=== PATIENT | male | born 1980 | race Caucasian/White ===

== ENCOUNTER 2024-07-05 10:23 | Day surgery (SDC) | payer OTHER, SELFPAY ==
[2024-06-29 14:55] VITALS: BMI 33.6
--- OUTSIDE RECORDS SUMMARY | 2024-07-04 12:37 | XMS_ITS | Patient Health Record ---
[facility] Organization [facility] Address [address] [place] [address] Care Team Providers Care Mail Reader Name Role Phone Jacob LANTIGUA, Gavin Primary Care Provider Gem Salazar Mohini Unavailable [phone] Reason For Referral No Information Medications Medication SIG (Take, Route, Fr equency, Duration) Notes Start Date End Date Status Chlorthalidone 25 MG 1 tablet in the mor kayla with food Orally Once a day Active Valsartan 320 MG 1 tablet Orally Once a day Active Physical Therapy 3-4x per week for 3-4 weeks Active Social History Tobacco Use: Social History Observation Description Date Details (start date - stop date) Former Smoker NA - NA Tobacco Use/Smoking Question Answer Notes Are you a: former smoker When did you start smoking? 1996 When did you stop smoking? 2009 How long has it been since you last smoked? 1-3 months Additional Findings: Tobacco Non-User Current no n-smoker Alcohol Screen Question Answer Notes Did you have a drink containing alcohol in the p ast year? Yes Points 0 Interpretation Negative Tobacco use other than smoking: Question Answer Notes Are you an other tobacco user? No Problems No Known Problems Plan Of Treatment Pending Test Test Name Order Date [id number] TENDON SHEATH/LIGAMENT 0 09/15/2017 Insurance Providers Payer Name Payer Address Payer Phone Subscriber Number Group Number Insured Name Patient Relationship to Insured Coverage Start Date Coverage End Date [facility] [address] [place] [address] [id number] PattersonCraig govea Self - patient is the insured Medical (General) History Medical History History ICD Code High blood pressure Chicken pox Surgical History Surgery Date(Month/Year) hernia 2007
--- OUTSIDE RECORDS SUMMARY | 2024-07-04 12:37 | XMS_ITS | Continuity of Care Document ---
Author Organization [place] - [facility], [facility] Address [address] [place] [address] Care Team Providers Care Automation And Control Engineer Name Role Phone DEMOND EASON Primary Care Provider Assessment Encounter Date Assessment Date Assessment LastModified by Organization Details LastModified Time 06/02/2024 06/02/2024 Patient presents with bilateral non-pulsatile tinnitus. We reviewed that unfortunately there is no known medical nor surgical cure. I have recommended the use of hearing protection as needed and avoidance of loud music. They should also use masking techniques with background noises that modulate to decrease perception of non-pulsatile tinnitus. Other therapies to improve tolerance of tinnitus were reviewed, to include biofeedback, sound retraining, and cognitive behavioral therapy. We discussed that high stress, low sleep and high caffeine intake can also be contributing factors. A brochure was provided to patient to read at home. Audiometric testing also notable for a 10 dB asymmetry from 500 to 2000 Hz with the left being the better hearing ear. Does not meet criteria for retrocochlear investigation, particularly given the bilateral nature of the tinnitus. I have recommended annual audiometric testing. Patient to call sooner with perceived change. [email or web address] Not available 06/02/2024 16:18:51 Plan of Treatment Reminders Order Date Submit Date Provider Last Modified By Organization Details Last Modified Time Details Appointments None record ed. Lab None record ed. Referral None record ed. Procedures None record ed. Surgeries None record ed. Imaging None record ed. Medication Orders None record ed. Patient TargetsNo targets recorded. Patient InstructionsNo instructions recorded. Reason for Referral None Reported. Results Created Date Observation Date Name Description Value Unit Range Abnormal Flag Note LastModifiedBy Organization Detail LastModifiedTime 06/02/20 24 audio gram No observ ation record ed. BARCODE Not Available 2023 16:30:24 Result Notes None recorded. Problems Name Problem SNOMED Code Status Onset Date Resolution Date Notes Provider Name and Address Organization Details Recorded Time Sensorineur al hearing loss of bilateral ears 431069508 Active 2023 Marilee larson [place] - [facility] 4 14:37:53 Bilateral tinnitus 7088762917466 Active 2023 AARON CASTAÑEDA PA-C [address] [place] [address] [place], [phone] - [facility] [place] 4 16:18:55 Problem Notes None recorded. Procedures Surgical History Date Name Laterality Status Provider Name and Address Organization Details Recorded Time 06/02/2024 Comp Audio with Tymps (20661 & 48255) completed Marilee Diez MA - [facility] 06/02/2024 14:37:39 Imaging Results None recorded. Procedure Notes None recorded. Medical Equipment None Reported. Medications Name Sig Start Date Stop Date Status Note LastModified by Organization Details LastModified Time prednisone 20 mg tablet TAKE 2 TABLETS BY MOUTH DAILY X2 DAYS THEN 1 TABLET X3 DAYS FOR 5 DAYS active Not Available Not Available No t Available chlorthalido ne 25 mg tablet TAKE 1 TABLET IN THE MORNING WITH FOOD ORALLY DAILY 90 DAYS active Not Available Not Available No t Available triamcinolon e acetonide 0.1 % topical cream 1 APPLICATION EXTERNALLY TWO TIMES A DAY X14 DAYS THEN NEEDED active Not Available Not Available No t Available amlodipine 10 mg tablet TAKE 1 TABLET BY MOUTH EVERY DAY active Not Available Not Available No t Available valsartan 320 mg tablet TAKE 1 TABLET BY MOUTH EVERY DAY FOR 90 DAYS active Not Available Not Available No t Available hydrochlorot hiazide 25 mg tablet TAKE 1 TABLET BY MOUTH EVERY DAY IN THE MORNING active Not Available Not Available No t Available Klor-Con M20 mEq tablet,exten ded release TAKE 1 TABLET BY MOUTH EVERY DAY WITH FOOD FOR 90 DAYS active Not Available Not Available No t Available GaviLyte-G 236 gram-22.74 gram-6.74 gram-5.86 gram oral solution TAKE 8 OUNCE BY MOUTH DIRECTED FOLLOW INSTRUCTION S PROVIDED BY OFFICE active Not Available Not Available No t Available Wegovy 1.7 mg/0.75 mL subcutaneous pen injector INJECT 1 SYRINGE SUBCUTANEOU SLY ONCE A WEEK active Not Available Not Available No t Available Wegovy 1 mg/0.5 mL subcutaneous pen injector INJECT 0.5 ML SUBCUTANEOU SLY ONE TIME PER WEEK active Not Available Not Available No t Available Wegovy 0.25 mg/0.5 mL subcutaneous pen injector INJECT 0.5 ML SUBCUTANEOU SLY WEEKLY active Not Available Not Available N ot Available Wegovy 0.5 mg/0.5 mL subcutaneous pen injector INJECT 0.5 ML SUBCUTANEOU SLY WEEKLY active Not Available Not Available N ot Available Vitals Date Recorded Body height Body mass index (BMI) Body weight Provider Name and Address Organization Details Last Updated DateTime 06/02/2024 180.34 cm 34.2 kg/m2 717333.13 g Monica Odell MA - [facility] 06/02/2024 14:43:00 Social History None recorded. Functional Status None recorded. Mental Status None recorded. Family History Nothing Reported. Medical History No medical history recorded. Past Encounters Encounter ID Performer Location Encounter Start Date Encounter Closed Date Diagnosis/Indication Diagnosis SNOMED-CT Code Diagnosis ICD10 Code Diagnosis Note [id number] AARON CASTAÑEDA PA-C [facility] [address] [address] 06/02/2024 13:57:01 06/02/2024 15:03:51 Sensorineural hearing loss of bilateral ears 544640132 H90.3 Audiologic al evaluation results:Ri ght ear:{{Norm al Normal through 2 kHz Mild M oderate Mo derately-s evere Rachell re Profoun d Normal through 3 kHz#}} {{hearing hearing. s loping to a mild slopi ng to a moderate s loping to moderately severe* sl oping to severe slo ping to profound f lat high frequency low frequency mid frequency cookie bite simon curve}} {{with sen sorineural hearing loss with* cond uctive hearing loss with mixed hearing loss with}} {{excellen t* good fa ir poor no measurable }} word recognitio n.Left ear:{{Norm al Normal through 2 kHz Mild M oderate Mo derately-s evere Rachell re Profoun d Normal through 3 kHz#}} {{hearing hearing. s loping to a mild slopi ng to a moderate s loping to moderately severe* sl oping to severe slo ping to profound f lat high frequency low frequency mid frequency cookie bite simon curve}} {{with sen sorineural hearing loss with* cond uctive hearing loss with mixed hearing loss with}} {{excellen t* good fa ir poor no measurable }} word recognitio n.Asymmetr ic SNHL from 500-2kHz of 10dB, worst in the right. Tympanomet ry:Right Ear:{{Type A* Type As Type Ad Type C Type C, shallow & rounded Ty pe B Type B with large volume Cou ld not maintain a hermetic seal}}Left Ear:{{Type A* Type As Type Ad Type C Type C, shallow & rounded Ty pe B Type B with large volume Cou ld not maintain a hermetic seal}} Bilateral tinnitus 75486 70345 102 H93.13 Health Concerns Section Related Observation LastModified by Organization Detai ls LastModified Time None Recorded Concern Status LastModified by Organization Details LastModified Time None Recorded Payers Encounter Date Sequence Insurance Name Policy Number Policy Gonzalez Covered Member ID Gonzalez Member ID Guarantor Name 06/02/2024 1 [facility] Craig Patterson [id number] Craig Patterson Notes Date Note Type Note Provider Name and Address Organization Details Recorded Time 06/02/2024 text/html 43 year old male presents for evaluation of the ears. Referred by PCP for nonpulsatile tinnitus which he reports has been ongoing for several years in the right > left ear. It is mostly well tolerated though worse at night. States hearing seems to be okay. He uses over the ear headphones and does listen to loud music, states he turned off the high volume notification to override the warnings. He has no other history of excessive noise exposure, no otalgia nor otorrhea, and no history of recurrent otitis and no ear surgeries. AARON CASTAÑEDA PA-C [address] [place] [address], [phone], [facility] - [facility] 06/02/2024 16:19:08
--- OUTSIDE RECORDS SUMMARY | 2024-07-04 12:37 | XMS_ITS | Data Portability ---
Author Organization [place] - [facility], [facility] Address [address] [place] [address] Care Team Providers Care Draughtsman Name Role Phone DEMOND EASON Primary Care [...] Sensorineur al hearing loss of bilateral ears 674239003 Active 2023 Marilee larson MA - [facility] 4 14:37:53 Bilateral tinnitus 4583994583508 Active 2023 AARON CASTAÑEDA PA-C [address] [place] [address] [place], [phone] - [facility] 16:18:55 Problem Notes None recorded. Procedures Surgical History Date Name Laterality Status Provider Name and Address Organization Details Recorded Time 06/02/2024 Comp Audio with Tymps (10915 & 15340) completed Marilee Diez MA [facility] 06/02/2024 14:37:39 Imaging Results Imaging Date Name Status LastModified by Organiz ation Details LastModified Time 06/02/2024 audiogram completed BARCODE Information no t available 06/02/2024 16:30:24 Procedure Notes None recorded. Medical Equipment None [...] Updated DateTime 06/02/2024 180.34 cm 34.2 kg/m2 172048.13 g Monica Odell MA - [facility] 06/02/2024 14:43:00 Social History None recorded. Functional Status None recorded. Mental Status None recorded. Family History Nothing Reported. Medical History No medical history recorded. Past Encounters Encounter ID Performer Location Encounter Start Date Encounter Closed Date Diagnosis/Indication Diagnosis SNOMED-CT Code Diagnosis ICD10 Code Diagnosis Note [id number] AARON CASTAÑEDA PA-C [facility] [address] [address] 06/02/2024 13:57:01 06/02/2024 15:03:51 Sensorineural hearing loss of bilateral ears 132411050 H90.3 Audiologic al evaluation results:Ri ght ear:{{Norm [...] not maintain a hermetic seal}} Bilateral tinnitus 47097 97753 102 H93.13 Health Concerns Section Related Observation LastModified by Organization Detai ls LastModified Time None Recorded Concern Status LastModified by Organization Details LastModified Time None Recorded Advance Directives Directive None Recorded Payers Encounter Date Sequence Insurance Name Policy Number Policy Gonzalez Covered Member ID Gonzalez Member ID Guarantor Name 06/02/2024 1 [facility] Craig Patterson [id number] Craig Patterson Notes Date Note Type Note [...] and no ear surgeries. AARON CASTAÑEDA PA-C [address] [place] [address], [phone], [facility] - [facility] 06/02/2024 16:19:08
[2024-07-05] VITALS (8 sets, daily range): BP systolic 122–144; BP diastolic 84–95; PULSE 51–75; RESP 14–18; TEMP 36.3–36.8; O2SAT 94–100; BMI 33.6
--- OUTSIDE RECORDS SUMMARY | 2024-07-05 10:47 | XMS_ITS | Patient Health Record ---
Author [facility] Address [address] [place] [address] Care Team Providers Care Dishwasher Preparer Name Role Phone Jacob LANTIGUA, Gavin Primary Care Provider Gem Salazar Mohini Unavailable [phone] Reason For Referral No Information Medications Medication [...] Treatment Pending Test Test Name Order Date [id number] TENDON SHEATH/LIGAMENT 0 09/15/2017 Insurance Providers Payer Name Payer Address Payer Phone Subscriber Number Group Number Insured Name Patient Relationship to Insured Coverage Start Date Coverage End Date formerly [facility] [address] [place] [address] [id number] PattersonCraig govea Self - patient is the insured Medical (General) History Medical History History ICD Code High blood pressure Chicken pox Surgical History Surgery Date(Month/Year) hernia 2007
[2024-07-05] MEDS: Lactated Ringers 1,000 ML 100 ML IVCONT (11:33)
--- NOTE | 2024-07-05 14:08 | HO.ANESPROP2 ---
Documented by User: Sarita Wallace NP 07/04/24 13:33 HPI - Anesthesia Eval Consult details Narrative: 43yo M for Bilateral Medial Rectus Eye Muscle Recession Anesthesia Pre-Procedure Meds Is the patient on any of the following meds?: GLP1/DPP4 PMFSH Past Medical History Medical History HTN (hypertension) Surgical History Surgical History Hx of hernia repair Hx of arthroscopic knee surgery Hx of non-cataract eye surgery Social History Social History Are you a primary child care attendant school to a significant other at home: No Do you presently have visiting nurse or other home services: No Patient Tobacco Use Status: Former Tobacco user Tobacco use type: Cigarette Years Smoked: 15 Use of substances other than those prescribed or required for medical reasons: No Have you been hit, kicked, punched, or otherwise hurt by someone within the past year? If so, by whom?: No Spiritual Healthcare Practices: none Zoroastrianism Healthcare Practices: Jainism Cultural Healthcare Practices: none Are you DNR?: No Advance Directives Information Provided: Yes Advance Directives on File: No Recently lost weight without trying: No Eating poorly because of decreased appetite: No Nutrition Risks: No Nutritional Risk Poor oral hygiene: No Meds Allergies Allergy/AdvReac Type Severity Reaction Status Date / Time No Known Allergies Allergy Verified 07/05/24 11:12 Home Medications ?Medication ?Instructions ?Recorded ?Confirmed ?Last Taken ?Type amlodipine 10 mg tablet 10 mg PO DAILY 06/29/24 06/29/24 07/05/24 07:00 History chlorthalidone 25 mg tablet 25 mg PO DAILY 06/29/24 06/29/24 Unknown History potassium chloride 10 mEq 10 meq PO DAILY 06/29/24 06/29/24 Unknown History tablet,extended release semaglutide (weight loss) 1.7 1.7 mg subcut QWEEK 06/29/24 06/29/24 06/22/24 History mg/0.75 mL subcutaneous pen injector (Wegovy) valsartan 320 mg tablet 320 mg PO DAILY 06/29/24 06/29/24 Unknown History Exam Height,Weight and Vital Signs: Height 5 ft 11 in Weight 109.316 kg Assessment and Plan Assessment Anesthesia Assessment: Chart Reviewed Documented by User: Alyssa Mccollum DO 07/05/24 14:08 HPI - Anesthesia Eval Anesthesia Pre-Procedure Meds Is the patient on any of the following meds?: GLP1/DPP4 PMFSH Past Medical History Medical History HTN (hypertension) Family History Family history of problems with anesthesia: No Surgical History Surgical History Hx of hernia repair Hx of arthroscopic knee surgery Hx of non-cataract eye surgery History of Problems with Anesthesia: No Social History Social History Are you a primary child care attendant school to a significant other at home: No Do you presently have visiting nurse or other home services: No Patient Tobacco Use Status: Former Tobacco user Tobacco use type: Cigarette Years Smoked: 15 Use of substances other than those prescribed or required for medical reasons: No Have you been hit, kicked, punched, or otherwise hurt by someone within the past year? If so, by whom?: No Spiritual Healthcare Practices: none Zoroastrianism Healthcare Practices: Jainism Cultural Healthcare Practices: none Are you DNR?: No Advance Directives Information Provided: Yes Advance Directives on File: No Recently lost weight without trying: No Eating poorly because of decreased appetite: No Nutrition Risks: No Nutritional Risk Poor oral hygiene: No Meds Allergies Allergy/AdvReac Type Severity Reaction Status Date / Time No Known Allergies Allergy Verified 07/05/24 11:12 Home Medications ?Medication ?Instructions ?Recorded ?Confirmed ?Last Taken ?Type amlodipine 10 mg tablet 10 mg PO DAILY 06/29/24 06/29/24 07/05/24 07:00 History chlorthalidone 25 mg tablet 25 mg PO DAILY 06/29/24 06/29/24 Unknown History potassium chloride 10 mEq 10 meq PO DAILY 06/29/24 06/29/24 Unknown History tablet,extended release semaglutide (weight loss) 1.7 1.7 mg subcut QWEEK 0106/29/24 06/22/24 History mg/0.75 mL subcutaneous pen injector (Snow) valsartan 320 mg tablet 320 mg PO DAILY 06/29/24 06/29/24 Unknown History Exam Exam Date and Time: 07/05/24 1408 Height,Weight and Vital Signs: Height 5 ft 11 in Weight 109.316 kg Vital Signs Temperature 97.3 F 07/05/24 11:31 Pulse Rate 72 07/05/24 11:31 Respiratory Rate 15 07/05/24 11:31 Blood Pressure 122/84 07/05/24 11:31 Pulse Oximetry 100 07/05/24 11:31 Oxygen Delivery Method Room Air 07/05/24 11:31 Temperature 97.3 F 07/05/24 11:31 Pulse Rate 72 07/05/24 11:31 Respiratory Rate 15 07/05/24 11:31 Blood Pressure 122/84 07/05/24 11:31 Pulse Oximetry 100 07/05/24 11:31 Oxygen Delivery Method Room Air 07/05/24 11:31 Airway Mallampati Class: III TM Dist: <=3cm Neck ROM: Full Loose/Missing/Broken Teeth: No (patient denies any loose or broken teeth) Heart: S1S2 Lungs: CTAB Assessment and Plan Assessment Anesthesia Assessment: Anesthesia Plan Discussed and Chart Reviewed Final Anesthetic Review Family History of Problems with Anesthesia: No History of Problems with Anesthesia: No NPO: Yes ASA Class: II Final Preanesthetic Review: No Changes in Pt Med Stat, Meds/Allgs Chart Reviewed, Consent Obtained/Reviewed and Anes Risks/Benef Reviewed Patient Risk: Low Procedure Risk: Low Anesthetic Plan Anesthetic Plan: GA and Agree w/ Assess. and Plan Disposition: Standard PACU
--- NOTE | 2024-07-05 15:23 | HO.OPHTHAL ---
Ophthalmology Operative Note Date of Service: 07/05/24 Narrative: Diagnosis exotropia. Procedure bilateral medial rectus recessions of [address] Medina. Anesthesia general. Complications none. The patient was brought to the operative room placed under general anesthesia. The eyes were prepped and draped in the usual sterile ophthalmic fashion. A lid speculum was placed in the right eye and a peritomy was created around the medial rectus muscle. The muscle was hooked and a 3 mm resection marked off with cautery. The resection point was secured with a double-armed Vicryl suture suture and the distal muscle resected. The resection point was then drawn forward to the original insertion using the Vicryl suture. Conjunctiva was closed with interrupted Vicryl sutures. An identical procedure was then performed in the left eye. The patient was then awoken from general anesthesia and discharged to postoperative recovery in good condition.
[2024-07-05] MEDS: Tetracaine HCl/PF 0.5% Oph Sol 4 ML DROPS 1 DROP EYE-BOTH ×3 (15:28→16:14)
== END 2024-07-05 16:49 | disposition home or self-care (01) ==
LOC: HO.SSS 10:24
PROVIDERS: PCP Internal Medicine; Visit Provider Ophthalmology
PROC: (CPT 67311; principal; 2024-07-05 13:10)
DX: H50.15 Alternating exotropia (principal); H50.9 Unspecified strabismus; I10 Essential (primary) hypertension; E78.5 Hyperlipidemia, unspecified; K76.0 Fatty (change of) liver, not elsewhere classified; Z79.899 Other long term (current) drug therapy; Z79.85 Long-term (current) use of injectable non-insulin antidiabetic drugs; Z98.890 Other specified postprocedural states; Z87.891 Personal history of nicotine dependence
CPT/HCPCS: 67311; J1100; J1596; J1885; J2003; J2250; J2405; J2704; J3010